=== PATIENT | female | born 1970 | race Caucasian/White ===

== ENCOUNTER 2017-12-06 14:12 | Emergency (ER) | payer OTHER ==
[~2017-12-06] VITALS: Ht 170.2 cm; Wt 99.8 kg
[~2017-12-06 14:12] MED LIST: ALBUTEROL0.09 MG/A1 INH; AMOXICILLIN500 MG PO; AUGMENTIN 875 M1 TAB PO; AUGMENTIN 875-1 EACH PO; AVELOX400 MG PO; BACTRIM DS 8001 TAB PO; BACTRIM DS TAB1 EACH PO; CEPHALEXIN500 M3 PO; CLEOCIN HCL300 MG PO; DIFLUCAN150 MG PO; FIORICET 325 MG1 TAB PO; GLUCOPHAGE1000 MG PO; KEFLEX500 M1 PO; KEFLEX500 MG PO; LASIX20 M1 PO; LEVEMIR 10100 UNITS/ SC; LEVEMIR100 UNIT/1 SC; LEVSIN-SL0.125 MG SL; LIPITOR20 MG PO; NOVOLOG100 U/ML SC; PRILOSEC OTC20 MG PO; PROBIOTIC FORMU1 CA1 PO; Robitussin AC PO; TYLENOL TAB 32325 MG PO; ZOFRAN 4MG ORALL4 MG PO; ZOFRAN ODT4 M1 SL; ZOFRAN ODT4 MG PO; ZOFRAN4 M2 PO
[2017-12-06 15:06] LABS: ABSOLUTE BASOPHIL COUNT 0 /CUMM (0.0-0.2); ABSOLUTE EOSINOPHIL COUNT 0.2 /CUMM (0.0-0.7); ABSOLUTE GRANULOCYTE CT 8.1 /CUMM (1.4-6.5); ABSOLUTE LYMPH COUNT 1.9 /CUMM (1.2-3.4); ABSOLUTE MONOCYTE COUNT 0.6 /CUMM (0.10-0.60); BASOPHIL % 0.4 % (0.0-2.0); EOSINOPHIL % 2.3 % (0-5); GRANULOCYTE % 74.4 % (42.2-75.2); HEMATOCRIT 37.9 % (37-47); MEAN CORPUSCULAR HGB 26.6 PG (27.0-31.0); MEAN CORPUSCULAR HGB CONC 33.3 G/DL (33.0-37.0); MEAN CORPUSCULAR VOLUME 79.9 FL (81.0-99.0); MEAN PLATELET VOLUME 8.5 FL (7.4-10.4); PLATELET COUNT 354 /CUMM (130-400); RBC DISTRIBUTION WIDTH 15.1 % (11.5-14.5); RED BLOOD CELL CT 4.74 /CUMM (4.20-5.40); WHITE BLOOD CELL COUNT 10.9 /CUMM (4.8-10.8)
[2017-12-06 17:18] VITALS: BP 177/87
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
[2017-12-06] MEDS ORDERED: LASIX20 M1 PO (17:33)
[2017-12-06] MEDS ORDERED: AUGMENTIN 875-1 EACH PO (17:33)
== END 2017-12-06 17:59 ==
LOC: ERH 14:12
PROVIDERS: Physician Assistant Medical
DX: L03.115 Cellulitis of right lower limb (principal); L03.116 Cellulitis of left lower limb